=== PATIENT | female | born 1990 ===

== ENCOUNTER 2017-07-10 10:27 | Emergency (ER) | payer SELFPAY ==
[2017-07-10 10:34] VITALS: BP 120/72; PULSE 82; RESP 20; TEMP 98.8; O2SAT 98
[2017-07-10 10:35] VITALS: BMI 35.9
--- NOTE | 2017-07-10 10:58 | ED PDOC ---
HPI: General Adult Time Seen by Provider: 07/10/17 10:32 Chief Complaint (Nursing): Abdominal Pain History Per: Patient Additional Complaint(s): Pt. states on Sunday she developed vaginal bleeding. Reports bleeding lasted for approximately 10 minutes then resolved on its own. States that bleeding is associated with pelvic pain which is still present. States that bleeding is present only upon wiping. Of note, pt. reports no prior care for this . Also reports having urinary frequency but no dysuria. . LMP 2016. Denies dysuria, fever, hx of ectopic , N/V/D, back pain, flank pain. Past Medical History Reviewed: Historical Data, Nursing Documentation, Vital Signs Vital Signs: Last Vital Signs Temp 98.8 F 07/10/17 10:33 Pulse 82 07/10/17 10:33 Resp 20 07/10/17 10:33 BP 120/72 07/10/17 10:33 Pulse Ox 98 07/10/17 14:19 - Family History Family History: States: No Known Family Hx - Home Medications Home Medications: Ambulatory Orders Medication Instructions Recorded Amoxicillin 500 mg PO Q12 #20 tablet 11/12/15 Prednisone 50 mg PO DAILY #5 tablet 11/12/15 Nitrofurantoin Macrocrystals 100 mg PO BID #14 cap 07/10/17 [Macrobid] - Allergies Allergies/Adverse Reactions: Allergies Allergy/AdvReac Type Severity Reaction Status Date / Time No Known Allergies Allergy Verified 11/12/15 16:24 Review of Systems ROS Statement: Except As Marked, All Systems Reviewed And Found Negative Genitourinary Female: Positive for: Vaginal Bleeding, Pelvic Pain Physical Exam - Physical Exam Appears: Positive for: Well, Non-toxic, No Acute Distress Skin: Positive for: Normal Color, Warm. Negative for: Rash Eye Exam: Positive for: Normal appearance Gastrointestinal/Abdominal: Positive for: Normal Exam, Bowel Sounds, Soft. Negative for: Tenderness (including pelvic area) Back: Positive for: Normal Inspection. Negative for: L CVA Tenderness, R CVA Tenderness Extremity: Positive for: Normal ROM Neurologic/Psych: Positive for: Alert, Oriented - Laboratory Results Result Diagrams: 07/10/17 11:10 07/10/17 11:10 - ECG O2 Sat by Pulse Oximetry: 98 - Progress ED Course And Treament: Labs ordered. US ordered. US: Ultrasound examination demonstrates a single live intrauterine gestation in cephalic presentation. The heart rate is 150 beats per minute. There is a grossly normal quantity of amniotic fluid. An anterior placenta is noted. At the inferior extent of the placenta, there is an irregular hypoechoic region posterior the placenta extending beyond the free margin of the placenta, most likely representing marginal abruption. There is no evidence of placenta previa. The cervix is closed and measures 5.3 cm in length. biometry yields a gestational age of 19 weeks 1 day. The ISATU by ultrasound is 12/03/2017. No anatomic evaluation was performed at this time. Single live intrauterine gestation in cephalic presentation. Findings concerning for marginal placental abruption. No previa. Cervix closed. Gestational age 19 weeks 1 day by ultrasound. Case d/w Dr. Loza, OBGYN combination machine tender, and states pt. can be dc'd with pelvic rest instructions and is to return to ED if vaginal bleeding returns. Also states that pt. requires pelvic rest. Pt. informed of plan and states she has a scheduled appointment with Dr. Alistair Babb her OBGYN on 07/17/2017. Pt. instructed to call clinic for a sooner appointment as she requires a repeat US. Need for pelvic rest stressed to patient. Case d/w Dr. Rincon who agrees with plan. Disposition - Clinical Impression Clinical Impression: Placental abruption - Patient ED Disposition Is Patient to be Admitted: No - Disposition Referrals: Goldie Ulloa MD [Staff Provider] - [facility] [Outside] Disposition: Routine/Home Disposition Time: 14:35 Condition: STABLE Prescriptions: Nitrofurantoin Macrocrystals [Macrobid] 100 mg PO BID #14 cap Instructions: Pelvic Rest (ED), Urinary Tract Infection in (ED) Forms: [facility] ([place]riac) Print Language: SINHALA
[2017-07-10 11:33] LABS: BASO % 0.4 % (0.0-2.0); EOS # 0.1 K/uL (0.0-0.7); EOS % 1.1 % (0.0-4.0); HEMATOCRIT 36.4 % (34.0-47.0); LYMPH # 2.7 K/uL (1.0-4.3); MEAN CELL VOLUME 87.1 fl (81.0-99.0); MEAN CORPUSCULAR HEMOGLOBIN 30.2 pg (27.0-31.0); MEAN CORPUSCULAR HGB CONC 34.7 g/dL (33.0-37.0); MEAN PLATELET VOLUME 10.5 fl (7.2-11.7); MONO # 0.5 K/uL (0.0-0.8); MONO % 5.8 % (0.0-10.0); NEUT # 5.8 K/uL (1.8-7.0); NEUT % 63.7 % (50.0-75.0); NRBC % 0.2 % (0.0-0.0); RED CELL DISTRIBUTION WIDTH 14.2 % (11.5-14.5); WHITE BLOOD COUNT 9.2 K/uL (4.8-10.8)
[2017-07-10 11:42] LABS: ALB/GLOB RATIO 1.2 (1.0-2.1); ALKALINE PHOSPHATASE 55 U/L (38-126); ALT/SGPT 28 U/L (9-52); AST/SGOT 23 U/L (14-36); BILIRUBIN,TOTAL 0.3 mg/dl (0.2-1.3); BLOOD UREA NITROGEN 6 mg/dl (7-17); CALCIUM 9.5 mg/dL (8.4-10.2); CARBON DIOXIDE 22 mmol/L (22-30); CHLORIDE 105 mmol/L (98-107); GFR AFRICAN-AMERICAN > 60; GLUCOSE,RANDOM 75 mg/dL (65-105); POTASSIUM 3.9 MMOL/L (3.6-5.0); SODIUM 138 mmol/l (132-148); TOTAL PROTEIN 7.4 G/DL (6.3-8.2)
[2017-07-10 12:38] LABS: RBC URINE 6 /hpf (0-3); URINE BACTERIA OCC (<OCC); URINE BILIRUBIN NEGATIVE (NEGATIVE); URINE BLOOD SMALL (NEGATIVE); URINE COLOR YELLOW (YELLOW); URINE GLUCOSE (UA) NEG (Normal); URINE KETONE NEGATIVE (NEGATIVE); URINE LEUKOCYTE ESTERASE MOD Leu/uL (Negative); URINE PROTEIN NEGATIVE (NEGATIVE); URINE UROBILINOGEN 0.2-1.0 mg/dL (0.2-1.0); WBC URINE 2 /hpf (0-5)
[2017-07-10] MEDS ORDERED: Sodium Chloride 0.9% 1,000 ML IV SCH (13:45)
--- NOTE | 2017-07-10 14:11 | US ---
PROCEDURE: Obstetrical ultrasound examination HISTORY: pelvic pain COMPARISON: Not available TECHNIQUE: Transabdominal FINDINGS: Ultrasound examination demonstrates a single live intrauterine gestation in cephalic presentation. The heart rate is 150 beats per minute. There is a grossly normal quantity of amniotic fluid. An anterior placenta is noted. At the inferior extent of the placenta, there is an irregular hypoechoic region posterior the placenta extending beyond the free margin of the placenta, most likely representing marginal abruption. There is no evidence of placenta previa. The cervix is closed and measures 5.3 cm in length. biometry yields a gestational age of 19 weeks 1 day. The ISATU by ultrasound is 12/03/2017. No anatomic evaluation was performed at this time. IMPRESSION: Single live intrauterine gestation in cephalic presentation. Findings concerning for marginal placental abruption. No previa. Cervix closed. Gestational age 19 weeks 1 day by ultrasound.
[2017-07-10] MEDS ORDERED: Albuterol-Ipratrop 3 mg / 0.5 (3 ml) UD ONE (15:13)
[2017-07-10 15:27] LABS: PARTIAL THROMBOPLASTIN TIME 27.5 Seconds (25.6-37.1)
== END 2017-07-10 15:09 | disposition home or self-care (01) ==
LOC: H.ER 10:27
DX: O23.40 Unspecified infection of urinary tract in pregnancy, unspecified trimester (principal)
CPT/HCPCS: 76815; 80053; 81003; 84702; 85025; 85610; 85730; 86850; 86900; 87086; 99283; J7040

== ENCOUNTER 2017-11-20 08:40 | Inpatient (IN) | payer MEDICAID ==
[2017-11-20] MEDS: Lactated Ringer's 1,000 ML IV SCH ×2 (09:20→18:00)
[2017-11-20 09:21] VITALS: BMI 41.0
[2017-11-20] MEDS ORDERED: Oxytocin 30 UNITS in Sodium Chloride 0.9% 500 ML IV PRN (09:46)
--- NOTE | 2017-11-20 10:27 | OBHP ---
Datetime: 11/20/2017 10:00 IP Admit Plan: Admit to unit; Initiate labor protocol Pelvic Type - PN: Adequate Extremities - PN: Normal Abdomen - PN: Normal Back - PN: Normal Breast - PN: Not Done Lungs - PN: Normal Heart - PN: Normal Thyroid - PN: Not Done Neurologic - PN: Normal HEENT - PN: Normal General - PN: Normal FHR - Baseline A Provider: 135 Comments, ACOG Physical Exam: SVE: 5cm, 100% effaced, high bedside sono: vertex presentation IP Hx Assessment: The History has been Reviewed and is Current EGA AdmitDate IP: 38.5 IP Chief Complaint: Uterine contractions Genitourinary Exam: Normal DTRs - PN: Not Done Datetime: 11/20/2017 09:40 IP Adm Impression: Term, intrauterine ; Active labor; Intact Membranes Admit Comment, IP Provider: 27 yo at 38w5d gestational age, with ISATU 11/29/17 presented to [facility] with contractions that started at 3 am, occuring 6 min apart, rates pain 8/10. Reports good m ovement, had some spotting yesterday but denies vaginal bleeding today. denies loss of fluid. care at [facility] with Dr. Velasquez Labs reviewed: GBS negative, GC/CL neg/neg, HIV neg, RPR NR, HBsAg neg, ABO O pos antibody neg, ru truman immune OBHx: 1 prior NVD in 2012 at full term, denies complications. Past med hx: denies Past surg hx: denies Social hx: denies tobacco, alcohol, illicit drug use Allergies: nkda Meds: PNV ROS: denies dizziness, headache, chest pain, shortness of breath, nausea, vomiting, diarrhea, burn ing with urination PE: VSS, BP 126/76 Gen: no acute distress, alert, awake CV: S1S2,RRR Resp: clear breath sounds bilaterally throughout, normal effort Abd: gravid, +BS, nontender Ext: no significant edema, no tenderness, no deformity SVE: 5cm, 100% effaced, high bedside sono: vertex presentation Assessment: 27 yo with single IUP at 38.5 weeks gestational age; in active labor. Plan: Admit to Labor and Delivery unit and begin labor protocol. Pt seen and discussed w/ Dr. Ryan. [email or web address] With PGY1, I saw and examined this patient. Agree with PGY1 note. MAHNDO Membranes, Provider: Intact Vital Signs Provider: Reviewed; Within Normal Limits NICHD Variability Prov Fetus A: Moderate 6-25bpm NICHD Accel Fetus A IP Provider: 15X15 FHR Category Provider Fetus A: Category I NICHD Decel Fetus A IP Provider: None Dilatation, Provider: 5 Effacement, Provider: 100 Station, Provider: high
[2017-11-20 10:30] LABS: BASO % 0.3 % (0.0-2.0); EOS % 0.4 % (0.0-4.0); HEMOGLOBIN 12.3 g/dL (12.0-16.0); LYMPH # 2.8 K/uL (1.0-4.3); LYMPH % 32.7 % (20.0-40.0); MEAN CELL VOLUME 82.2 fl (81.0-99.0); MEAN CORPUSCULAR HEMOGLOBIN 27.3 pg (27.0-31.0); MEAN CORPUSCULAR HGB CONC 33.3 g/dL (33.0-37.0); MEAN PLATELET VOLUME 10.7 fl (7.2-11.7); MONO # 0.5 K/uL (0.0-0.8); MONO % 5.6 % (0.0-10.0); NEUT # 5.2 K/uL (1.8-7.0); NRBC % 0.2 % (0.0-0.0); RBC 4.51 Mil/uL (3.80-5.20); RED CELL DISTRIBUTION WIDTH 17.1 % (11.5-14.5); WHITE BLOOD COUNT 8.6 K/uL (4.8-10.8)
--- NOTE | 2017-11-20 10:42 | OBADHP ---
Datetime: 11/20/2017 10:00 Admit Comment, IP Provider: 27 yo at 38w5d gestational age, with ISATU 11/29/17 by LMP and conco rdant with 21w u/s, presented to [facility] with contractions that started at 3 am, occuring 6 min apart, r ates pain 05/10. Reports good movement, had some spotting yesterday but denies vaginal bleeding today. denies loss of fluid. care at [facility] with Dr. Velasquez Labs reviewed: GBS negative, GC/CL neg/neg, HIV neg, RPR NR, HBsAg neg, ABO O pos antibody neg, ru truman immune OBHx: 1 prior NVD in 2012 at full term, denies complications. Past med hx: denies Past surg hx: denies Social hx: denies tobacco, alcohol, illicit drug use Allergies: nkda Meds: PNV ROS: denies dizziness, headache, chest pain, shortness of breath, nausea, vomiting, diarrhea, burn ing with urination PE: VSS, BP 110/67 Gen: no acute distress, alert, awake CV: S1S2,RRR Resp: clear breath sounds bilaterally throughout, normal effort Abd: gravid, +BS, nontender Ext: no significant edema, no tenderness, no deformity SVE: 5cm, 100% effaced, high bedside sono: vertex presentation Assessment: 27 yo with single IUP at 38.5 weeks gestational age; in active labor. Plan: Admit to Labor and Delivery unit and begin labor protocol. Pt seen and discussed w/ Dr. Ahn. [email or web address] : With PGY1 I saw and examined this patient. Agree with PGY1 note. MAHNDO - with patient, we discussed labor, pain managment, augmentatoin, delivery and care Pelvic Type - PN: Adequate Extremities - PN: Normal Abdomen - PN: Normal Back - PN: Normal Breast - PN: Not Done Lungs - PN: Normal Heart - PN: Normal Thyroid - PN: Not Done Neurologic - PN: Normal HEENT - PN: Normal General - PN: Normal FHR - Baseline A Provider: 135 Comments, ACOG Physical Exam: SVE: 5cm, 100% effaced, high bedside sono: vertex presentation IP Hx Assessment: The History has been Reviewed and is Current IP Chief Complaint: Uterine contractions Genitourinary Exam: Normal DTRs - PN: Not Done EGA AdmitDate IP: 38.5 IP Adm Impression: Term, intrauterine ; Active labor; Intact Membranes IP Admit Plan: Admit to unit; Initiate labor protocol Datetime: 11/20/2017 09:40 Membranes, Provider: Intact Vital Signs Provider: Reviewed; Within Normal Limits NICHD Variability Prov Fetus A: Moderate 6-25bpm NICHD Accel Fetus A IP Provider: 15X15 FHR Category Provider Fetus A: Category I NICHD Decel Fetus A IP Provider: None Dilatation, Provider: 5 Effacement, Provider: 100 Station, Provider: high
[2017-11-20] MEDS ORDERED: Oxytocin 30 UNITS in Sodium Chloride 0.9% 500 ML IV ONE (12:01)
--- NOTE | 2017-11-20 12:30 | OBPN ---
Datetime: 11/20/2017 10:00 IP Progress Impression: Normal progression of labor IP Informed Consent Obtain: Vaginal Delivery IP Progress Plan: Augmentation Pool Provider: Negative Membranes, Provider: Intact FHR - Baseline A Provider: 135 Presentation-Admit: Vertex IP Progress Note Comment: Patient was checked with attending. 5/50%/high Attempted AROM. (too high) Will start augmentation with Pitocin. FHT reviewed and reassuring. DEclined epidural at this time. Discussed with attending, Dr. Shelby barker-call...agree with PGY2 note Dilatation, Provider: 5 Effacement, Provider: 50 Station, Provider: high NICHD Decel Fetus A IP Provider: None Datetime: 11/20/2017 09:40 Vital Signs Provider: Reviewed; Within Normal Limits NICHD Accel Fetus A IP Provider: 15X15 FHR Category Provider Fetus A: Category I NICHD Variability Prov Fetus A: Moderate 6-25bpm
--- NOTE | 2017-11-20 14:44 | OBPN ---
Datetime: 11/20/2017 14:30 IP Progress Plan Other: Nitrous/sedatoin and/or epidural offered IP Progress Impression: Reassuring heart rate IP Informed Consent Obtain: Vaginal Delivery; Risks, Benefits and Alternatives Discussed IP Progress Plan: Augmentation; Anesthesia consult Pool Provider: Negative Membranes, Provider: Intact Contraction Comments Provider: 2-5m FHR - Baseline A Provider: 130 Presentation-Admit: Vertex IP Progress Note Comment: She feels more CTX pain...Pitocin now at 8miu/ml SVE too high / pt uncomfortable for AROM Pain management discussed; NICHD Accel Fetus A IP Provider: 15X15 FHR Category Provider Fetus A: Category I NICHD Variability Prov Fetus A: Moderate 6-25bpm Dilatation, Provider: 5-6 Effacement, Provider: 90 Station, Provider: -2 NICHD Decel Fetus A IP Provider: None
--- NOTE | 2017-11-20 15:04 | OBPN ---
Datetime: 11/20/2017 15:00 IP Progress Impression: Reassuring heart rate IP Informed Consent Obtain: Vaginal Delivery; Risks, Benefits and Alternatives Discussed IP Procedures: Artificial ROM IP Progress Plan: Continue present management; Augmentation Pool Provider: Positive Membranes, Provider: Bulging Amniotic Fluid Color, Provider: Clear IP Progress Note Comment: She felt better after starting Nitrous AROM clear fluid - augmentation of labor FHR Category Provider Fetus A: Category I Dilatation, Provider: 5-6 Effacement, Provider: 90 Station, Provider: -2
[2017-11-20] MEDS ORDERED: Lidocaine 1% Inj (20ml) ONE (17:26)
[2017-11-20] MEDS: Oxytocin 30 UNITS in Sodium Chloride 0.9% 500 ML IV SCH ×7 (17:40→21:00)
[2017-11-20] MEDS ORDERED: Benzocaine/Menthol SPRAY TOP PRN (17:42)
[2017-11-20] MEDS ORDERED: Oxycodone/Acetaminophen 5/325 mg Tab PO PRN ×2 (17:42)
--- NOTE | 2017-11-20 20:32 | OBDS ---
DELIVERY PERSONNEL Delivery Doctor: Thomas Ryan DO Loom Setter: Eileen Melo RN MATERNAL INFORMATION Delivery Anesthesia: Local Medications in Delivery: pitocin Estimated Blood Loss (ml): 200 Placenta Cultured: No Maternal Complications: None RN Comments: Atraumatic of viable babyboy over intact perineum. Suprapubic pressure and McRobe rts applied . tolerated delivery well. Skin to skin initiated for a few minutes Dr. Antony as sessed requested to be further evaluated in Nursery transfered as ordered. Provider Comments: Over intact perineum, of live infant male. One loose nuchal cord noted and reduced upon delivery. Mari and suprapubic pressure applied to assist in delivery of baby. Plac enta was delivered intact spontaneously. EBL 200cc. Perinal repair as above. She remained stable LABOR SUMMARY EDC: 11/29/2017 00:00 No. Babies in Womb: 1 Attempted: No Labor Anesthesia: None LABOR INFORMATION Group B Beta Strep: Negative MEMBRANES Membranes Rupture Method: Artificial Rupture of Membranes: 11/20/2017 14:57 Length of Rupture (hrs): 2.57 Amniotic Fluid Color: Clear Amniotic Fluid Amount: Small Amniotic Fluid Odor: Normal STAGES OF LABOR Stage 3 hrs: 0 Stage 3 min: 9 VAGINAL DELIVERY Episiotomy: None Laceration Extension: Second Degree Laceration Type: Perineal Laceration Repair: Yes Laceration Repair Note: 1% Lidocaine was infiltrated (4-5cc). 2.0 Vicryl suture was used to repair perineum Initial Vag Sponge Count: 5 Final Vag Sponge Count: 5 Initial Vag Sharps Count: 1 Final Vag Sharps Count: 1 Sponge Count Correct: Yes Sharps Count Correct: Yes Count Comment: 5 lap pads one syringe two suture needles BABY A INFORMATION Delivery Date/Time: 11/20/2017 17:31 Method of Delivery: Vaginal Born in Route : No : N/A Forceps: N/A Vacuum Extraction: N/A Shoulder Dystocia : Yes SHOULDER DYSTOCIA BABY A Delivery Date/Time: 11/20/2017 17:31 1st Intervention to Resolve: McRobert's Maneuver 2nd Intervention to Resolve: Suprapubic Pressure PRESENTATION/POSITION BABY A Presentation: Cephalic (Annotations: Bedside US done by dr ryan at this time ) Cephalic Presentation: Vertex Vertex Position: Left Occipital Anterior Breech Presentation: N/A PLACENTA INFORMATION BABY A Placenta Delivery Time : 11/20/2017 17:40 Placenta Method of Delivery: Spontaneous Placenta Status: Delivered SCORES BABY A Heart Rate 1 min: >100 bpm Resp Effort 1 min: Good Cry Reflex Irritability 1 min: Cough or Sneeze or Pulls Away Muscle Tone 1 min: Active Motion Color 1 min: Body [place], Extremities Blue Resuscitation Effort 1 min: N/A SCORE 1 MIN: 9 Heart Rate 5 min: >100 bpm Resp Effort 5 min: Good Cry Reflex Irritability 5 min: Cough or Sneeze or Pulls Away Muscle Tone 5 min: Active Motion Color 5 min: Body [place], Extremities Blue Resuscitation Effort 5 min: N/A SCORE 5 MIN: 9 INFANT INFORMATION BABY A Gestational Age at Delivery: 38.0 Gestational Status: Term Outcome : Liveborn Infant Condition : Stable Sex: Male IDENTIFICATION/MEDS BABY A ID Band Number: [id number] ID Band Location: Right Leg; Right Arm WEIGHT/LENGTH BABY A Birthweight (gms): 3605 Infant Weight (lb): 7 Weight (oz): 15 Infant Length Inches: 52.00 Infant Length cms: 132.1 CORD INFORMATION BABY A No. Cord Vessels: 3 Nuchal Cord : Around Neck x1, Loose Cord Blood Taken: N/A Suction: Mouth; Nose
[2017-11-21 06:40] LABS: HEMOGLOBIN 10.8 g/dL (12.0-16.0); MEAN CELL VOLUME 83.3 fl (81.0-99.0); MEAN CORPUSCULAR HEMOGLOBIN 27.1 pg (27.0-31.0); MEAN CORPUSCULAR HGB CONC 32.5 g/dL (33.0-37.0); RED CELL DISTRIBUTION WIDTH 16.7 % (11.5-14.5); WHITE BLOOD COUNT 11.4 K/uL (4.8-10.8)
[2017-11-21] MEDS ORDERED: Multivitamin With Minerals Tab PO SCH (09:00)
--- NOTE | 2017-11-21 09:02 | OBPPN ---
Datetime: 11/21/2017 06:35 PP Pain Prov: Within normal limits PP Nausea Prov: Denies PP Flatus Prov: Yes PP BM Prov: No PP Breasts Prov: Not Done PP Heart Prov: Normal PP Lungs Prov: Normal PP Abdomen/Uterus Prov: Normal PP Lochia Prov: Normal PP Vulva/Perineum Prov: Not Done PP CVA Tenderness Prov: Not Done PP Extremities Prov: Normal PP C/S Incision Prov: Not Applicable PP Progress Prov: Normal PP Impression Prov: Normal progression PP Plan Prov: Continue present management PP Progress Note Prov: PPD 1 S: 27 y/o female s/p on 11/20/17 seen and examined at bedside this am on PPD1. No ov ernight events. Pt reports mild abdominal pain, but well controlled with pain meds. Ambulating. Breas t feeding (with formula supplementation) without difficulty. Lochia is similar to menses volume. No B M. Denies fever/chills, diarrhea, nausea/vomiting, chest pain, dyspnea, and dizziness. Declined circu mcision for baby boy. Was NPO overnight, reports that she has an appetite today. O: VS: stable GEN: NAD Cardio: S1S2, no murmurs Lungs: clear breath sounds b/l, no wheezing Abdomen: BS+, appropriate tenderness to palpation. Uterus is firm and at the level of the umbilic us. EXT: No edema, calves nontender NEURO/PSYCH: AAOx3, no grossly focal deficits, preserved affect and mood. Assessment/Plan: 27 y/o female s/p on 11/20/17 doing well on PPD1. Pt remains afebri le, tolerating pain with medication. F/U Post H/H. Tolerating diet. Anticipating d/c on 11/22. Continue with current management. F/U am cbc. Motrin 600mg q6 for mild pain. Percocet 1 tablet PO q4 for mod- severe pain. Encourage and ambulating [place] 17.2 mg PO HS Case d/w OB attending. Henna Thomas, PGY1 The patient was seen with the resident I agree with the note IP PP Procedures: None Vital Signs Provider PP: Reviewed; Within Normal Limits
[2017-11-23 01:49] VITALS: BP 138/87; PULSE 71; RESP 20; TEMP 98.7; O2SAT 99
== END 2017-11-22 20:00 | disposition home or self-care (01) | DRG 373 ==
LOC: H.EROB2 08:40 → H.L&D 09:46 → H.OB/GYN 22:56
PROVIDERS: ADMIT Obstetrics & Gynecology; ATTEND Obstetrics & Gynecology
PROC: 10E0XZZ Delivery of Products of Conception, External Approach (ICD-10-PCS; principal; 2017-11-20)
PROC: 0KQM0ZZ Repair Perineum Muscle, Open Approach (ICD-10-PCS; 2017-11-20)
PROC: 10907ZC Drainage of Amniotic Fluid, Therapeutic from Products of Conception, Via Natural or Artificial Opening (ICD-10-PCS; 2017-11-20)
PROC: 4A1HXCZ Monitoring of Products of Conception, Cardiac Rate, External Approach (ICD-10-PCS; 2017-11-20)
DX: O69.81X0 Labor and delivery complicated by cord around neck, without compression, not applicable or unspecified (principal); O66.0 Obstructed labor due to shoulder dystocia; O70.1 Second degree perineal laceration during delivery; Z37.0 Single live birth; Z3A.38 38 weeks gestation of pregnancy

== ENCOUNTER 2018-04-09 00:07 | Emergency (ER) | payer SELFPAY ==
[2018-04-09 00:07] VITALS: BMI 41.0
--- NOTE | 2018-04-09 01:38 | ED PDOC ---
HPI: Abdomen Time Seen by Provider: 04/09/18 00:55 Chief Complaint (Nursing): Abdominal Pain Chief Complaint (Provider): Abdominal Pain History Per: Patient History/Exam Limitations: no limitations Onset/Duration Of Symptoms: Sudden Onset (07:00) Current Symptoms Are (Timing): Still Present Additional Complaint(s): 27 y/o female with no significant PMHx presenting for evaluation of diffuse abdominal pain associated with nausea since 7am. Patient states she had 1 normal bowel movement this morning. She denies any fever, urinary symptoms, sick contacts, recent travel, vaginal bleeding, or vaginal discharge. She reports a normal spontaneous vaginal delivery 4 months ago. Patient states she took 2 tablets of Advil without relief. PMD: None reported Past Medical History Reviewed: Historical Data, Nursing Documentation, Vital Signs Vital Signs: Last Vital Signs Temp 98.0 F 04/09/18 00:16 Pulse 66 04/09/18 00:16 Resp 20 04/09/18 00:16 BP 127/80 04/09/18 00:16 Pulse Ox 100 04/09/18 02:44 - Medical History PMH: No Chronic Diseases Denies: Depression, Diabetes, HTN - Surgical History Surgical History: No Surg Hx - Family History Family History: States: Unknown Family Hx - Home Medications Home Medications: Ambulatory Orders Medication Instructions Recorded Vit No.126/Iron/Folic 1 tab PO DAILY 11/20/17 [Classic Tablet] Docusate Sodium [Colace] 100 mg PO BID #14 capsule 11/22/17 Ferrous Sulfate 325 mg PO BID #60 tablet 11/22/17 Ibuprofen [Motrin] 600 mg PO Q6 PRN #30 tab 11/22/17 - Allergies Allergies/Adverse Reactions: Allergies Allergy/AdvReac Type Severity Reaction Status Date / Time No Known Allergies Allergy Verified 04/09/18 00:15 Review of Systems ROS Statement: Except As Marked, All Systems Reviewed And Found Negative Constitutional: Negative for: Fever Gastrointestinal: Positive for: Nausea, Abdominal Pain Genitourinary Female: Negative for: Dysuria, Frequency, Incontinence, Hematuria , Vaginal Discharge, Vaginal Bleeding Physical Exam - Reviewed Nursing Documentation Reviewed: Yes Vital Signs Reviewed: Yes - Physical Exam Appears: Positive for: Well (obese), Non-toxic, No Acute Distress Head Exam: Positive for: ATRAUMATIC, NORMAL INSPECTION, NORMOCEPHALIC Skin: Positive for: Normal Color, Warm, Dry. Negative for: Rash Eye Exam: Positive for: EOMI, Normal appearance, PERRL Neck: Positive for: Normal, Painless ROM, Supple Cardiovascular/Chest: Positive for: Regular Rate, Rhythm. Negative for: Murmur Respiratory: Positive for: Normal Breath Sounds. Negative for: Respiratory Distress Gastrointestinal/Abdominal: Positive for: Normal Exam, Soft. Negative for: Tenderness Back: Positive for: Normal Inspection. Negative for: L CVA Tenderness, R CVA Tenderness, Vertebral Tenderness Extremity: Positive for: Normal ROM. Negative for: Pedal Edema, Deformity Neurologic/Psych: Positive for: Alert, Oriented. Negative for: Motor/Sensory Deficits - ECG O2 Sat by Pulse Oximetry: 100 (RA) Pulse Ox Interpretation: Normal Medical Decision Making Medical Decision Making: A/P: 27 y/o female with no significant PMHx presenting with abdominal pain and nausea -Patient very well appearing with normal vitals and normal exam -Not concerned for acute intraabdominal processes such as appendicitis, colitis , gallbladder disease and others not mentioned -Patient constantly constipated -Will check X-rays and give Lactulose 530 Patient was given fleets enema and then had large BM and felt relief. Patient advised to improve diet and followup in clinic. ----- Scribe Attestation: Documented by Phillip Ching, acting as a scribe for Adis Carlson MD. Provider Scribe Attestation: All medical record entries made by the Scribe were at my direction and personally dictated by me. I have reviewed the chart and agree that the record accurately reflects my personal performance of the history, physical exam, medical decision making, and the department course for this patient. I have also personally directed, reviewed, and agree with the discharge instructions and disposition. Disposition - Clinical Impression Clinical Impression: Constipation - Patient ED Disposition Is Patient to be Admitted: No - Disposition Referrals: [facility] [Outside] Disposition: Routine/Home Disposition Time: 05:32 Condition: IMPROVED Instructions: Constipation in Adults Forms: [facility] (Samoan)
[2018-04-09 05:44] VITALS: BP 131/81; PULSE 98; RESP 18; TEMP 98.9; O2SAT 98
--- NOTE | 2018-04-09 09:28 | RAD ---
Date of service: 04/09/2018 PROCEDURE: Radiographs of the chest and abdomen (obstructive series) HISTORY: diffuse abd pain COMPARISON: No prior. TECHNIQUE: AP radiograph of the chest, with upright and supine radiographs of the abdomen. FINDINGS: CHEST: Lungs: Clear. Cardiovascular: Normal size heart. No pulmonary vascular congestion. Pleura: No pleural fluid. No pneumothorax. Other findings: None. ABDOMEN AND PELVIS: Bowel: No evidence of acute mechanical bowel obstruction however there is a moderate amount of stool within the colon consistent with fecal retention/constipation relatively. Free air: None. Bones: Unremarkable. Other findings: None. IMPRESSION: Unremarkable radiographs of chest. No evidence acute mechanical bowel obstruction. Findings consistent with mild constipation.
== END 2018-04-09 05:49 | disposition home or self-care (01) ==
LOC: H.ER 00:07
DX: K59.00 Constipation, unspecified (principal)

== ENCOUNTER 2018-06-02 07:30 | Emergency (ER) | payer SELFPAY ==
[2018-06-02 07:38] VITALS: BMI 39.4
[2018-06-02] MEDS ORDERED: Sodium Chloride 0.9% 1,000 ML IV STA (08:24)
--- NOTE | 2018-06-02 08:39 | ED PDOC ---
HPI: Abdomen Time Seen by Provider: 06/02/18 08:06 Chief Complaint (Nursing): Abdominal Pain Chief Complaint (Provider): Abdominal Pain History Per: Patient History/Exam Limitations: no limitations Onset/Duration Of Symptoms: Hrs (x 10) Current Symptoms Are (Timing): Still Present Location Of Pain/Discomfort: Diffuse Quality Of Discomfort: "Pain" Exacerbating Factors: Walking Additional Complaint(s): 27 year old female () presents with abdominal pain since 11pm last night associated with one episode of non-bloody vomiting and sweating. Pain is gradual in onset and is constant. She reports left sided abdominal pain when she lays down. Also has not drank water since onset because it hurts when she walks. Patient's last normal bowel movement was last night. Denies back pain and urinary symptoms. PMD: none provided Abnormal Vaginal Bleeding: No Last Menstral Period: 05/01/2018 : 2 Para: 2 Past Medical History Reviewed: Historical Data, Nursing Documentation, Vital Signs Vital Signs: Last Vital Signs Temp 98.4 F 06/02/18 07:38 Pulse 75 06/02/18 07:38 Resp 20 06/02/18 07:38 BP 124/85 06/02/18 07:38 Pulse Ox 97 06/02/18 08:57 - Medical History PMH: Denies: Depression, Diabetes, HTN - Surgical History Surgical History: No Surg Hx - Family History Family History: States: Unknown Family Hx - Home Medications Home Medications: Ambulatory Orders Medication Instructions Recorded Vit No.126/Iron/Folic 1 tab PO DAILY 11/20/17 [Classic Tablet] Docusate Sodium [Colace] 100 mg PO BID #14 capsule 11/22/17 Ferrous Sulfate 325 mg PO BID #60 tablet 11/22/17 Ibuprofen [Motrin] 600 mg PO Q6 PRN #30 tab 11/22/17 Famotidine [Pepcid] 20 mg PO BID #28 tab 06/02/18 - Allergies Allergies/Adverse Reactions: Allergies Allergy/AdvReac Type Severity Reaction Status Date / Time No Known Allergies Allergy Verified 04/09/18 00:15 Review of Systems ROS Statement: Except As Marked, All Systems Reviewed And Found Negative Gastrointestinal: Positive for: Vomiting (x 1), Abdominal Pain. Negative for: Diarrhea Genitourinary Female: Negative for: Dysuria, Frequency, Incontinence, Hematuria Musculoskeletal: Negative for: Back Pain Physical Exam - Reviewed Nursing Documentation Reviewed: Yes Vital Signs Reviewed: Yes - Physical Exam Appears: Positive for: Non-toxic, No Acute Distress Head Exam: Positive for: ATRAUMATIC, NORMAL INSPECTION, NORMOCEPHALIC Skin: Positive for: Normal Color, Warm, Dry Eye Exam: Positive for: EOMI, Normal appearance, PERRL Neck: Positive for: Normal, Painless ROM, Supple Cardiovascular/Chest: Positive for: Regular Rate, Rhythm. Negative for: Murmur Respiratory: Positive for: Normal Breath Sounds. Negative for: Wheezing, Respiratory Distress Gastrointestinal/Abdominal: Positive for: Normal Exam, Soft, Tenderness (mild diffuse tenderness) Back: Positive for: Normal Inspection Extremity: Positive for: Normal ROM. Negative for: Deformity Neurologic/Psych: Positive for: Alert, Oriented (x 3). Negative for: Motor/ Sensory Deficits - Laboratory Results Result Diagrams: 06/02/18 08:46 06/02/18 08:46 - ECG O2 Sat by Pulse Oximetry: 97 (RA) Pulse Ox Interpretation: Normal Medical Decision Making Medical Decision Makin:23 Impression: abdominal pain Initial Plan: --CMP --Lipase --urine dip --urine preg --CBC --NS IV --Zofran 4 mg IVP Scribe Attestation: Documented by Jayda Dale, acting as a scribe for Erin Garay MD Provider Scribe Attestation: All medical record entries made by the Scribe were at my direction and personally dictated by me. I have reviewed the chart and agree that the record accurately reflects my personal performance of the history, physical exam, medical decision making, and the department course for this patient. I have also personally directed, reviewed, and agree with the discharge instructions and disposition. 9.45a - patient is feeling better. States that her symptoms are often brought on by eating spicy foods. Advised to make appointment in [facility] to follow up on this and on the lab findings. Disposition - Clinical Impression Clinical Impression: Gastritis, Elevated liver enzymes - Patient ED Disposition Is Patient to be Admitted: No Doctor Will See Patient In The: Office Counseled Patient/Family Regarding: Diagnosis, Need For Followup, Rx Given - Disposition Referrals: [facility] [Outside] [facility] [Outside] Disposition: Routine/Home Disposition Time: 09:58 Condition: IMPROVED Prescriptions: Famotidine [Pepcid] 20 mg PO BID #28 tab Instructions: Gastritis, Liver Function Test Forms: [employer] (Polish) Print Language: GREEK - POA Present On Arrival: None
[2018-06-02 09:18] LABS: BASO % 0.4 % (0.0-2.0); EOS # 0.1 K/uL (0.0-0.7); HEMOGLOBIN 13.8 g/dL (12.0-16.0); LYMPH # 1.5 K/uL (1.0-4.3); LYMPH % 24.3 % (20.0-40.0); MEAN CELL VOLUME 86.2 fl (81.0-99.0); MEAN CORPUSCULAR HEMOGLOBIN 29.1 pg (27.0-31.0); MEAN CORPUSCULAR HGB CONC 33.8 g/dL (33.0-37.0); MEAN PLATELET VOLUME 9.9 fl (7.2-11.7); MONO # 0.4 K/uL (0.0-0.8); MONO % 6.7 % (0.0-10.0); NEUT % 66.6 % (50.0-75.0); NRBC % 0.1 % (0.0-0.0); RBC 4.75 Mil/uL (3.80-5.20); RED CELL DISTRIBUTION WIDTH 14.6 % (11.5-14.5); WHITE BLOOD COUNT 6.1 K/uL (4.8-10.8)
[2018-06-02 09:26] LABS: ALB/GLOB RATIO 1.3 (1.0-2.1); ALBUMIN 4.5 g/dL (3.5-5.0); ALT/SGPT 177 U/L (9-52); AST/SGOT 130 U/L (14-36); BLOOD UREA NITROGEN 8 mg/dl (7-17); CALCIUM 9.5 mg/dL (8.4-10.2); GFR NON-AFRICAN AMERICAN > 60; LIPASE 65 U/L (23-300)
[2018-06-02 10:13] VITALS: BP 116/62; PULSE 66; RESP 17; TEMP 98.9; O2SAT 96
== END 2018-06-02 10:14 | disposition home or self-care (01) ==
LOC: H.ER 07:30
DX: K29.70 Gastritis, unspecified, without bleeding (principal); R94.5 Abnormal results of liver function studies
CPT/HCPCS: 80053; 81025; 83690; 85025; 96361; 96374; 99285; J2405; J7030